=== PATIENT | male | born 1940 | race Hispanic/Latino ===

== ENCOUNTER 2021-04-29 17:33 | Inpatient (IN) | payer MEDICARE, OTHER ==
[2021-04-29 18:19] LABS: #Lymphocytes 0.8 thou/uL (1.20-3.40); #Monocytes 1.3 thou/uL (0.11-0.59); #Neutrophils 16.9 thou/uL (1.40-6.50); %Basophils 0.1 % (0.0-1.0); %Eosinophils 0.1 % (0.0-10.0); %Lymphocytes 4.1 % (21.0-51.0); %Neutrophils 88.7 % (42.0-75.0); Hemoglobin 9.3 g/dL (14.0-18.0); Mean Corpuscular HGB CONC 30.4 g/dL (32.0-36.0); Mean Corpuscular Hemoglobin 24.2 pg (27.0-31.0); Mean Corpuscular Volume 79.6 fL (78.0-98.0); Mean Platelet Volume 6.4 fL (7.4-10.4); Platelet Count 540 thou/uL (130-400); Red Blood Cell (RBC) Count 3.86 mill/uL (4.70-6.10); White Blood Cell (WBC) Count 19.1 thou/uL (4.8-10.8)
[2021-04-29 18:40] LABS: ALT (SGPT) 11 U/L (8-55); AST (SGOT) 15 U/L (5-34); Albumin 2.8 g/dL (3.4-4.8); Alkaline Phosphatase 72 U/L (40-110); Anion Gap 12 mmol/L (10-20); BUN (Urea Nitrogen) 24 mg/dL (8.4-25.7); Bilirubin, Total 0.7 mg/dL (0.2-1.2); Calc. Creatinine Clearance 0 mL/min (70-130); Calcium 7.9 mg/dL (7.8-10.44); Carbon Dioxide 21 mmol/L (23-31); Chloride 104 mmol/L (98-107); Globulin 4.2 g/dL (2.4-3.5); Glucose 157 mg/dL (83-110); Sodium 133 mmol/L (136-145)
[2021-04-29] MEDS ORDERED: cefTRIAXone\\ROCEPHIN 2 GM VIAL ONE (18:57)
[2021-04-29 19:03] LABS: CKMB 1.6 ng/mL (0-6.6)
[2021-04-29] MEDS ORDERED: Aspirin Chewable 81 MG TAB ONE (19:09)
[2021-04-29] MEDS ORDERED: Azithromycin 500 MG VIAL ONE (19:35)
[2021-04-29] MEDS ORDERED: Bisacodyl 10 MG SUPP PR PRN (20:24)
[2021-04-29] MEDS ORDERED: Senokot S 8.6-50 MG TAB PO PRN (20:24)
[2021-04-29] MEDS ORDERED: Acetaminophen 325 MG TAB PO PRN (20:24)
[2021-04-29] MEDS ORDERED: Ondansetron ODT 4 MG TAB PO PRN (20:24)
[2021-04-29] MEDS ORDERED: Acetaminophen 650 MG Suppository PR PRN (20:24)
[2021-04-29] MEDS ORDERED: Calcium Carbonate 500 MG ChewTAB PO PRN (20:24)
[2021-04-29] MEDS ORDERED: Bisacodyl 5 MG TAB PO PRN (20:24)
[2021-04-29] MEDS ORDERED: Ondansetron PF 4 MG/2 ML Vial IVP PRN (20:24)
[2021-04-29] MEDS ORDERED: Lactated Ringer's 1,000 ML IV SCH (20:30)
[2021-04-29 21:15] LABS: SARS-CoV-2 NAA Rapid Test Not Detected (NotDetected)
[2021-04-29 21:21] LABS: Troponin I 0.075 ng/mL (< 0.028)
[2021-04-30] MEDS: cefTRIAXone\\ROCEPHIN 1 GM in Sodium Chloride 0.9% 100 ML IVPB SCH ×2 (00:21→22:15)
[2021-04-30] MEDS: Lactated Ringer's 1,000 ML IV SCH ×3 (01:00→10:05)
[2021-04-30 04:55] LABS: Hemoglobin A1c 5.4 % (4.0-6.0)
[2021-04-30 04:59] LABS: Bacteria/HPF None Seen HPF (None Seen); Bilirubin Negative (Negative); Blood, Urine 1+ (Negative); Clarity Clear (Clear); Glucose, Urine (Dipstick) Normal (Negative); Ketone, Urine Negative (Negative); Leukocyte Negative Leu/uL (Negative); Nitrite Negative (Negative); Protein, Urine (Dipstick) 50 mg/dL (Neg-Trace); RBC/HPF 0-3 HPF (0-3); Specific Gravity, Urine 1.029 (1.002-1.036); Squamous Epithelial 0-3 HPF (0-3); Urobilinogen 3 mg/dL (Less than 2); WBC/HPF 0-3 HPF (0-3); pH, Urine 5.5 (5.0-9.0)
[2021-04-30 05:08] LABS: Urine Culture Reflex No No
[2021-04-30 05:11] LABS: Iron Binding Capacity, Total 184 mcg/dL (261-462)
[2021-04-30 05:12] LABS: Iron 11 ug/dL (65-175)
[2021-04-30 05:13] LABS: Anion Gap 12 mmol/L (10-20); BUN (Urea Nitrogen) 20 mg/dL (8.4-25.7); Calc. Creatinine Clearance 61 mL/min (70-130); Calcium 7.9 mg/dL (7.8-10.44); Carbon Dioxide 21 mmol/L (23-31); Cardiac Risk 4.6 (Less than 4.5); Chloride 107 mmol/L (98-107); Cholesterol 91 mg/dl (< 200 Desired); Glucose 100 mg/dL (83-110); HDL Cholesterol 20 mg/dL (>60 Neg Risk); Iron 11 ug/dL (65-175); Iron Binding Capacity, Total 181 mcg/dL (261-462); LDL Cholesterol, Calculated 57 mg/dL; Potassium 4.2 mmol/L (3.5-5.1); Sodium 136 mmol/L (136-145); Triglycerides 68 mg/dL (Less than 150)
[2021-04-30 05:20] LABS: Band 7 % (5-11); Hemoglobin 9.2 g/dL (14.0-18.0); Hypochromia SLIGHT = 6-15 cells (100X) (0-5/hpf); Lymphocytes 11 % (21-51); MDiff Complete? YES; Mean Corpuscular Hemoglobin 25.7 pg (27.0-31.0); Mean Corpuscular Volume 80.1 fL (78.0-98.0); Mean Platelet Volume 6.6 fL (7.4-10.4); Monocytes 5 % (0-10); Neutrophil 76 % (42-75); Platelet Count 438 thou/uL (130-400); Platelet Morphology Comment Appears Increased; Polychromasia SLIGHT = 2-3 cells (100X) (0-2/hpf); RBC Distribution Width 17.9 % (11.5-14.5); Red Blood Cell (RBC) Count 3.57 mill/uL (4.70-6.10); Target Cells SLIGHT = 2-5 cells (100X) (0-1/hpf)
[2021-04-30 05:32] LABS: Ferritin 130.32 ng/mL (22-322); Thyroid Stimulating Hormone 0.8781 uIU/mL (0.35-4.94)
[2021-04-30] MEDS: Enoxaparin Sodium 40 MG/0.4 ML SYRINGE SC SCH (10:06)
[2021-04-30] MEDS ORDERED: Tamsulosin HCl 0.4 MG CAP PO SCH (10:15)
[2021-04-30] MEDS ORDERED: Iron Sucrose Complex 200 MG in Sodium Chloride 0.9% 100 ML IVPB SCH (10:15)
[2021-04-30] MEDS ORDERED: Iron, Sodium Ferric Gluconate 250 MG in Sodium Chloride 0.9% 250 ML 250 ML IVPB SCH (11:00)
[2021-04-30] MEDS: Cepastat Lozenges 1 LOZ PO PRN (11:46)
[2021-04-30 13:24] LABS: Legionella Urinary Ag Negative (Negative); Strep pneumo Urine Ag NEGATIVE (NEGATIVE)
[2021-04-30] MEDS: Azithromycin 500 MG in Sodium Chloride 0.9% 250 ML 250 ML IVPB SCH (21:09)
[2021-05-01] MEDS: Lactated Ringer's 1,000 ML IV SCH ×3 (00:45→21:52)
[2021-05-01 06:06] LABS: Anion Gap 13 mmol/L (10-20); BUN (Urea Nitrogen) 14 mg/dL (8.4-25.7); Calc. Creatinine Clearance 70 mL/min (70-130); Carbon Dioxide 22 mmol/L (23-31); Chloride 107 mmol/L (98-107); Potassium 3.6 mmol/L (3.5-5.1); Sodium 138 mmol/L (136-145)
[2021-05-01 06:07] LABS: Calcium 8.2 mg/dL (7.8-10.44); Glucose 87 mg/dL (83-110)
[2021-05-01 06:09] LABS: Band 5 % (5-11); Eosinophils 3 % (0-10); Hemoglobin 9.5 g/dL (14.0-18.0); Lymphocytes 17 % (21-51); MDiff Complete? YES; Mean Corpuscular HGB CONC 31.9 g/dL (32.0-36.0); Mean Corpuscular Hemoglobin 25.6 pg (27.0-31.0); Mean Corpuscular Volume 80.3 fL (78.0-98.0); Mean Platelet Volume 6.3 fL (7.4-10.4); Monocytes 13 % (0-10); Neutrophil 62 % (42-75); Platelet Count 445 thou/uL (130-400); Platelet Morphology Comment Appears Increased; RBC Distribution Width 17.9 % (11.5-14.5); White Blood Cell (WBC) Count 9.1 thou/uL (4.8-10.8)
[2021-05-01] MEDS ORDERED: FLU VACC QS2021-22(65YR UP)/PF 240 MCG/0.7 ML SYRINGE IM ONE (09:00)
[2021-05-01] MEDS: Enoxaparin Sodium 40 MG/0.4 ML SYRINGE SC SCH (09:59)
[2021-05-01] MEDS: Tamsulosin HCl 0.4 MG CAP PO SCH (20:39)
[2021-05-01] MEDS: guaiFENesin ER 600 MG TAB PO SCH (20:39)
[2021-05-01] MEDS: Azithromycin 500 MG in Sodium Chloride 0.9% 250 ML 250 ML IVPB SCH (20:39)
[2021-05-01] MEDS: cefTRIAXone\\ROCEPHIN 1 GM in Sodium Chloride 0.9% 100 ML IVPB SCH (21:52)
[2021-05-02] MEDS: Lactated Ringer's 1,000 ML IV SCH ×3 (03:35→18:37)
[2021-05-02 05:33] LABS: Anion Gap 12 mmol/L (10-20); BUN (Urea Nitrogen) 14 mg/dL (8.4-25.7); Calc. Creatinine Clearance 74 mL/min (70-130); Calcium 8.2 mg/dL (7.8-10.44); Carbon Dioxide 21 mmol/L (23-31); Chloride 107 mmol/L (98-107); Glucose 98 mg/dL (83-110); Potassium 3.7 mmol/L (3.5-5.1); Sodium 136 mmol/L (136-145)
[2021-05-02 05:39] LABS: Hemoglobin 9.1 g/dL (14.0-18.0); Mean Corpuscular HGB CONC 31.9 g/dL (32.0-36.0); Mean Corpuscular Hemoglobin 25.5 pg (27.0-31.0); Mean Corpuscular Volume 79.9 fL (78.0-98.0); Mean Platelet Volume 6.2 fL (7.4-10.4); Platelet Count 466 thou/uL (130-400); RBC Distribution Width 18.3 % (11.5-14.5); Red Blood Cell (RBC) Count 3.57 mill/uL (4.70-6.10); White Blood Cell (WBC) Count 9.2 thou/uL (4.8-10.8)
[2021-05-02 05:40] LABS: Band 6 % (5-11); Eosinophils 2 % (0-10); Hypochromia SLIGHT = 6-15 cells (100X) (0-5/hpf); Lymphocytes 24 % (21-51); MDiff Complete? YES; Monocytes 10 % (0-10); Neutrophil 58 % (42-75); Platelet Morphology Comment Appears Increased; Polychromasia SLIGHT = 2-3 cells (100X) (0-2/hpf); Target Cells SLIGHT = 2-5 cells (100X) (0-1/hpf)
[2021-05-02] MEDS: Enoxaparin Sodium 40 MG/0.4 ML SYRINGE SC SCH (09:21)
[2021-05-02] MEDS: guaiFENesin ER 600 MG TAB PO SCH ×2 (09:22→22:05)
[2021-05-02] MEDS: Azithromycin 500 MG in Sodium Chloride 0.9% 250 ML 250 ML IVPB SCH (19:48)
[2021-05-02] MEDS: Tamsulosin HCl 0.4 MG CAP PO SCH (22:05)
[2021-05-02] MEDS: cefTRIAXone\\ROCEPHIN 1 GM in Sodium Chloride 0.9% 100 ML IVPB SCH (22:06)
[2021-05-03] MEDS: Lactated Ringer's 1,000 ML IV SCH ×3 (03:21→21:15)
[2021-05-03 04:44] LABS: Hemoglobin 8.5 g/dL (14.0-18.0); Mean Corpuscular HGB CONC 31.1 g/dL (32.0-36.0); Mean Corpuscular Hemoglobin 24.9 pg (27.0-31.0); Mean Corpuscular Volume 79.8 fL (78.0-98.0); Mean Platelet Volume 6.2 fL (7.4-10.4); Platelet Count 441 thou/uL (130-400); RBC Distribution Width 18.8 % (11.5-14.5); Red Blood Cell (RBC) Count 3.44 mill/uL (4.70-6.10); White Blood Cell (WBC) Count 7.6 thou/uL (4.8-10.8)
[2021-05-03 06:00] LABS: Anion Gap 10 mmol/L (10-20); BUN (Urea Nitrogen) 12 mg/dL (8.4-25.7); Calc. Creatinine Clearance 70 mL/min (70-130); Carbon Dioxide 23 mmol/L (23-31); Chloride 107 mmol/L (98-107); Glucose 94 mg/dL (83-110); Potassium 3.9 mmol/L (3.5-5.1); Sodium 136 mmol/L (136-145)
[2021-05-03 06:47] LABS: Band 9 % (5-11); Eosinophils 1 % (0-10); Lymphocytes 18 % (21-51); MDiff Complete? YES; Monocytes 7 % (0-10); Neutrophil 65 % (42-75)
[2021-05-03] MEDS: guaiFENesin ER 600 MG TAB PO SCH ×2 (09:24→21:14)
[2021-05-03] MEDS: Enoxaparin Sodium 40 MG/0.4 ML SYRINGE SC SCH (09:24)
[2021-05-03] MEDS: Cepastat Lozenges 1 LOZ PO PRN (09:25)
[2021-05-03 15:49] VITALS: BMI 24.6
[2021-05-03] MEDS: Tamsulosin HCl 0.4 MG CAP PO SCH (21:14)
[2021-05-03] MEDS: cefTRIAXone\\ROCEPHIN 1 GM in Sodium Chloride 0.9% 100 ML IVPB SCH (21:16)
[2021-05-03] MEDS: Azithromycin 500 MG in Sodium Chloride 0.9% 250 ML 250 ML IVPB SCH (21:16)
[2021-05-04] MEDS: Lactated Ringer's 1,000 ML IV SCH (03:14)
[2021-05-04] MEDS: Benzonatate 100 MG CAP PO PRN (08:46)
[2021-05-04] MEDS: Enoxaparin Sodium 40 MG/0.4 ML SYRINGE SC SCH (08:46)
[2021-05-04] MEDS: guaiFENesin ER 600 MG TAB PO SCH ×2 (08:46→19:59)
[2021-05-04] MEDS ORDERED: Albuterol Sulfate 2.5 mg/3 ml Neb NEB PRN (16:48)
[2021-05-04] MEDS ORDERED: Non-Formulary Item 1 EACH (Albuterol Sulfate [Proair Hfa] 8.5 GM Hfa.Aer.Ad) INH PRN (16:48)
[2021-05-04] MEDS: Mometasone 200 MCG/Formoterol 5 MCG 120 PUFF INHALER INH SCH (18:25)
[2021-05-04] MEDS: Azithromycin 500 MG in Sodium Chloride 0.9% 250 ML 250 ML IVPB SCH (19:55)
[2021-05-04] MEDS: Tamsulosin HCl 0.4 MG CAP PO SCH (19:59)
[2021-05-04] MEDS: cefTRIAXone\\ROCEPHIN 1 GM in Sodium Chloride 0.9% 100 ML IVPB SCH (21:30)
[2021-05-05] MEDS: Mometasone 200 MCG/Formoterol 5 MCG 120 PUFF INHALER INH SCH ×2 (06:59→18:30)
[2021-05-05] MEDS: Enoxaparin Sodium 40 MG/0.4 ML SYRINGE SC SCH (08:15)
[2021-05-05] MEDS: guaiFENesin ER 600 MG TAB PO SCH ×2 (08:15→20:11)
[2021-05-05 09:33] LABS: #Basophils 0.1 thou/uL (0.0-0.2); #Eosinphils 0.3 thou/uL (0.0-0.7); #Lymphocytes 1.5 thou/uL (1.20-3.40); #Monocytes 0.6 thou/uL (0.11-0.59); #Neutrophils 5.6 thou/uL (1.40-6.50); %Basophils 1.1 % (0.0-1.0); %Eosinophils 3.4 % (0.0-10.0); %Lymphocytes 18.8 % (21.0-51.0); %Monocytes 7.9 % (0.0-10.0); %Neutrophils 68.8 % (42.0-75.0); Hemoglobin 9.3 g/dL (14.0-18.0); Mean Corpuscular HGB CONC 31.9 g/dL (32.0-36.0); Mean Corpuscular Hemoglobin 25.7 pg (27.0-31.0); Mean Corpuscular Volume 80.6 fL (78.0-98.0); Mean Platelet Volume 5.9 fL (7.4-10.4); Platelet Count 404 thou/uL (130-400); Red Blood Cell (RBC) Count 3.61 mill/uL (4.70-6.10); White Blood Cell (WBC) Count 8.1 thou/uL (4.8-10.8)
[2021-05-05 09:49] LABS: Anion Gap 11 mmol/L (10-20); BUN (Urea Nitrogen) 13 mg/dL (8.4-25.7); Calc. Creatinine Clearance 66 mL/min (70-130); Calcium 8.3 mg/dL (7.8-10.44); Carbon Dioxide 23 mmol/L (23-31); Chloride 106 mmol/L (98-107); Glucose 104 mg/dL (83-110); Potassium 3.9 mmol/L (3.5-5.1); Sodium 136 mmol/L (136-145)
[2021-05-05] MEDS: Benzonatate 100 MG CAP PO PRN (20:11)
[2021-05-05] MEDS: Tamsulosin HCl 0.4 MG CAP PO SCH (20:11)
[2021-05-06] MEDS: Mometasone 200 MCG/Formoterol 5 MCG 120 PUFF INHALER INH SCH ×2 (07:17→19:32)
[2021-05-06] MEDS: Enoxaparin Sodium 40 MG/0.4 ML SYRINGE SC SCH (10:18)
[2021-05-06] MEDS: guaiFENesin ER 600 MG TAB PO SCH ×2 (10:18→20:16)
[2021-05-06] MEDS: Tamsulosin HCl 0.4 MG CAP PO SCH (20:16)
[2021-05-07 03:17] LABS: SARS-CoV-2 NAA Rapid Test Not Detected (NotDetected)
[2021-05-07] MEDS: Mometasone 200 MCG/Formoterol 5 MCG 120 PUFF INHALER INH SCH ×2 (08:00→19:19)
[2021-05-07] MEDS: guaiFENesin ER 600 MG TAB PO SCH ×2 (09:14→20:09)
[2021-05-07] MEDS: Enoxaparin Sodium 40 MG/0.4 ML SYRINGE SC SCH (09:14)
[2021-05-07] MEDS: Benzonatate 100 MG CAP PO PRN (12:26)
[2021-05-07] MEDS: Tamsulosin HCl 0.4 MG CAP PO SCH (20:09)
[2021-05-08] MEDS: Mometasone 200 MCG/Formoterol 5 MCG 120 PUFF INHALER INH SCH (07:48)
[2021-05-08] MEDS: Enoxaparin Sodium 40 MG/0.4 ML SYRINGE SC SCH (08:38)
[2021-05-08] MEDS: guaiFENesin ER 600 MG TAB PO SCH (08:38)
[2021-05-08 09:35] LABS: #Eosinphils 0.3 thou/uL (0.0-0.7); #Lymphocytes 1.7 thou/uL (1.20-3.40); #Monocytes 0.6 thou/uL (0.11-0.59); #Neutrophils 4.4 thou/uL (1.40-6.50); %Basophils 0.5 % (0.0-1.0); %Eosinophils 4.5 % (0.0-10.0); %Lymphocytes 24.2 % (21.0-51.0); %Monocytes 9.1 % (0.0-10.0); %Neutrophils 61.8 % (42.0-75.0); Mean Corpuscular HGB CONC 31.7 g/dL (32.0-36.0); Mean Corpuscular Hemoglobin 25.5 pg (27.0-31.0); Mean Corpuscular Volume 80.5 fL (78.0-98.0); Platelet Count 377 thou/uL (130-400); RBC Distribution Width 18.9 % (11.5-14.5); Red Blood Cell (RBC) Count 3.92 mill/uL (4.70-6.10); White Blood Cell (WBC) Count 7.1 thou/uL (4.8-10.8)
[2021-05-08 10:10] LABS: Anion Gap 11 mmol/L (10-20); BUN (Urea Nitrogen) 15 mg/dL (8.4-25.7); Calc. Creatinine Clearance 58 mL/min (70-130); Calcium 8.5 mg/dL (7.8-10.44); Carbon Dioxide 23 mmol/L (23-31); Chloride 104 mmol/L (98-107); Glucose 94 mg/dL (83-110); Sodium 134 mmol/L (136-145)
[2021-05-08] MEDS ORDERED: Polyethylene Glycol 3350 17 GM Packet PO SCH (10:33)
[2021-05-08 12:05] VITALS: TEMP 97.4
[2021-05-08 16:29] VITALS: BP 113/79
== END 2021-05-08 17:00 | DRG 871 ==
LOC: ERS 17:33 → 2NO 20:04 → SJJU 05-04 10:21
PROVIDERS: ADMIT Family Medicine; ATTEND Family Medicine
DX: A41.9 Sepsis, unspecified organism (principal); Z20.822 Contact with and (suspected) exposure to COVID-19; J18.9 Pneumonia, unspecified organism; J44.0 Chronic obstructive pulmonary disease with (acute) lower respiratory infection; K92.1 Melena; E87.1 Hypo-osmolality and hyponatremia; I25.10 Atherosclerotic heart disease of native coronary artery without angina pectoris; D64.9 Anemia, unspecified; E86.1 Hypovolemia; N40.1 Benign prostatic hyperplasia with lower urinary tract symptoms; N39.498 Other specified urinary incontinence; R33.8 Other retention of urine; R77.8 Other specified abnormalities of plasma proteins; Z96.653 Presence of artificial knee joint, bilateral; Z28.21 Immunization not carried out because of patient refusal; Z95.5 Presence of coronary angioplasty implant and graft; Z98.890 Other specified postprocedural states; Z95.1 Presence of aortocoronary bypass graft; Z87.891 Personal history of nicotine dependence; Z95.828 Presence of other vascular implants and grafts; Z79.899 Other long term (current) drug therapy; Z79.51 Long term (current) use of inhaled steroids
CPT/HCPCS: 0240U; 36415; 70450; 71045; 80048; 80053; 80061; 81001; 82553; 82728; 83036; 83540; 83550; 83605; 83880; 84145; 84443; 84484; 85007; 85025; 85027; 87040; 87449; 87899; 93005; 96374; 96375; J0456; J0696; J1650; J2916; J3490; J7050; J7120; U0002